=== PATIENT | female | born 1950 | race Hispanic/Latino ===

== ENCOUNTER 2022-12-05 23:39 | Emergency (ER) | payer OTHER ==
[~2022-12-05] VITALS: Ht 162.6 cm; Wt 97.5 kg
[2022-12-06 01:15] LABS: BASOPHILS % (AUTO) 0.3 % (0.0-5.0); EOSINOPHILS % (AUTO) 1.8 % (0.0-8.0); HEMATOCRIT 37.5 % (36-48); LYMPHOCYTES % (AUTO) 41.4 % (21.0-51.0); MEAN CORPUSCULAR HGB CONC 32.8 g/dL (32.0-36.0); MEAN CORPUSCULAR VOLUME 91.5 fL (79-99); MONOCYTES % (AUTO) 7.3 % (3.0-13.0); NEUTROPHILS % (AUTO) 48.8 % (40.0-77.0); PLATELET COUNT (AUTO) 173 K/uL (130-400); RED CELL DISTRIBUTION WIDTH 14.2 % (11.0-15.5); WHITE BLOOD COUNT (AUTO) 10.3 K/uL (4.8-10.8)
[2022-12-06] MEDS ORDERED: ONDANSETRON 4MG INJ IVP ONE (01:30)
[2022-12-06] MEDS ORDERED: MORPHINE 2 MG SYG IVP ONE (01:30)
[2022-12-06 01:54] LABS: ALBUMIN 3.6 g/dL (3.5-5.0); POTASSIUM 4.1 mmol/L (3.5-5.1); TOTAL PROTEIN, SERUM 7.5 g/dL (6.0-8.3)
[2022-12-06 02:00] LABS: APPEARANCE,URINE CLEAR (CLEAR); BILIRUBIN,URINE NEGATIVE (NEGATIVE); COLOR,URINE LIGHT-YELLOW (YELLOW); GLUCOSE, URINE (UA) 50 mg/dL (NEGATIVE); KETONES,URINE NEGATIVE (NEGATIVE); LEUKOCYTE ESTERASE ,URINE 500 Leu/uL (NEGATIVE); NITRATE,URINE NEGATIVE (NEGATIVE); OCCULT BLOOD,URINE NEGATIVE (NEGATIVE); PROTEIN,URINE NEGATIVE (NEGATIVE); UROBILINOGEN,URINE 0.2 mg/dL (0.2-1.0)
[2022-12-06 02:15] LABS: BACTERIA,URINE RARE /HPF (None Seen); SQUAMOUS EPITHELIAL CELL,UR FEW /HPF (0-2)
[2022-12-06] MEDS ORDERED: CEFTRIAXONE 1G VIAL IVPB ONE (04:00)
[2022-12-06] MEDS ORDERED: IBUP-1493 PO (04:18)
[2022-12-06] MEDS ORDERED: OMEP40CA21 PO (04:18)
[2022-12-06] MEDS ORDERED: CEFU500T67 PO (04:19)
[2022-12-06 04:40] VITALS: BP 158/87
== END 2022-12-06 04:47 | disposition home or self-care (01) ==
LOC: EDH 23:39
DX: R10.11 Right upper quadrant pain (principal); N39.0 Urinary tract infection, site not specified; I10 Essential (primary) hypertension; E11.9 Type 2 diabetes mellitus without complications
CPT/HCPCS: 99285; 80053; 83690; 85025; 87088; 81001; 36415; 96374; 76705; 96375; J2270; J0696; J2405